=== PATIENT | male | born 1955 | race Asian ===

== ENCOUNTER 2016-09-27 16:01 | Inpatient (IN) | payer OTHER ==
[~2016-09-27] VITALS: Ht 165.1 cm; Wt 63.5 kg
[2016-09-27 16:54] LABS: BASOPHIL % 0.3 % (0-2); PLATELET COUNT 232 x10^3mcL (130-400); RED CELL DISTRIBUTION WIDTH 13.6 % (11.5-14.5)
[2016-09-27 17:03] LABS: CALCIUM 9.1 mg/dL (8.5-10.1); CARBON DIOXIDE 26.4 mmol/L (21-32); CHLORIDE SERUM 106 mmol/L (98-107); CREATININE SERUM 0.9 mg/dL (0.7-1.3); GFR1 > 60 mL/min; GLUCOSE SERUM 89 mg/dL (74-106); POTASSIUM SERUM 3.9 mmol/L (3.5-5.1); SODIUM SERUM 141 mmol/L (136-145)
[2016-09-27 17:08] LABS: ALKALINE PHOSPHATASE 44 U/L (46-116); ALT/SGPT 39 U/L (16-63); AST/SGOT 20 U/L (15-37); BILIRUBIN TOTAL 0.63 mg/dL (0.20-1.00)
[2016-09-27 17:11] LABS: microscopic required? NO
[2016-09-27 17:26] LABS: UA SPECIFIC GRAVITY 1.015 (1.005-1.035); urine erythrocyte NEGATIVE (NEGATIVE)
[2016-09-27 17:42] LABS: T4(THYROXINE) 7.6 ug/dL (4.7-13.3)
[2016-09-27 17:47] LABS: AMPHETAMINE QUAL UR NONE DETECTED (NEG <=1000)
[2016-09-27] MEDS ORDERED: ZOCOR40 MG PO (18:26)
[2016-09-27] MEDS ORDERED: ADULT LOW DOSE81 MG PO (18:27)
[2016-09-27 19:39] VITALS: BP 113/68
[2016-09-27 21:57] LABS: T3 TOTAL 1.26 ng/mL
[2016-09-27 21:58] LABS: CHOLESTEROL/HDL RATIO 4.4
[2016-09-27 22:04] LABS: FREE T4 1.48 ng/dL (0.76-1.46); FREE THYROXINE INDEX 2.6 ug/dL (1.4-4.5); T4(THYROXINE) 6.6 ug/dL (4.7-13.3)
[2016-09-28 05:55] VITALS: BP 106/63
[2016-09-28 06:06] LABS: BASOPHIL % 0.7 % (0-2); PLATELET COUNT 230 x10^3mcL (130-400); RED CELL DISTRIBUTION WIDTH 13.6 % (11.5-14.5)
[2016-09-28 06:33] LABS: CALCIUM 8.6 mg/dL (8.5-10.1); CARBON DIOXIDE 24.4 mmol/L (21-32); CHLORIDE SERUM 106 mmol/L (98-107); CREATININE SERUM 0.7 mg/dL (0.7-1.3); GFR1 > 60 mL/min; GLUCOSE SERUM 95 mg/dL (74-106); MAGNESIUM 2.2 mg/dL (1.8-2.4); PHOSPHOROUS 3.8 mg/dL (2.5-4.9); POTASSIUM SERUM 3.7 mmol/L (3.5-5.1); SODIUM SERUM 140 mmol/L (136-145)
[2016-09-28 09:56] VITALS: BP 97/49
[2016-09-28 14:18] VITALS: BP 91/46
[2016-09-28 18:00] VITALS: BP 95/51
[2016-09-28 20:54] VITALS: BP 105/53
[2016-09-29 05:59] VITALS: BP 106/63
[2016-09-29 09:17] VITALS: BP 103/61
[2016-09-29 15:47] VITALS: BP 103/61
[2016-09-29 16:13] VITALS: BP 100/58
[2016-09-29 17:59] LABS: CARBON DIOXIDE 25.3 mmol/L (21-32); CHLORIDE SERUM 106 mmol/L (98-107); CREATININE SERUM 0.9 mg/dL (0.7-1.3); GFR1 > 60 mL/min; GLUCOSE SERUM 110 mg/dL (74-106); POTASSIUM SERUM 4.1 mmol/L (3.5-5.1); SODIUM SERUM 142 mmol/L (136-145)
[2016-09-29 18:00] LABS: CALCIUM 8.8 mg/dL (8.5-10.1); MAGNESIUM 2.1 mg/dL (1.8-2.4); PHOSPHOROUS 4.2 mg/dL (2.5-4.9)
[2016-09-29 18:04] LABS: RED CELL DISTRIBUTION WIDTH 13.5 % (11.5-14.5)
[2016-09-29 18:05] LABS: PLATELET COUNT 228 x10^3mcL (130-400)
[2016-09-29 18:06] LABS: BASOPHIL % 0.6 % (0-2)
== END 2016-09-29 17:25 | disposition home or self-care (01) | DRG 243 ==
LOC: ED 16:01 → MU 18:21 → DU 18:21 → MU 09-29 05:38
PROVIDERS: Emergency Medicine; ADMIT Family Medicine
DX: K21.9 Gastro-esophageal reflux disease without esophagitis (principal); E78.5 Hyperlipidemia, unspecified; R73.03 Prediabetes; H91.93 Unspecified hearing loss, bilateral; Z68.23 Body mass index [BMI] 23.0-23.9, adult; Z79.82 Long term (current) use of aspirin; Z87.891 Personal history of nicotine dependence
CPT/HCPCS: 83880; 84439; A9500; G0480; J7030; Q0092

== ENCOUNTER 2016-12-22 13:24 | Inpatient (IN) | payer OTHER ==
[~2016-12-22] VITALS: Ht 165.1 cm; Wt 65.9 kg
[~2016-12-22 13:24] MED LIST: ADULT LOW DOSE81 MG PO; ZOCOR40 MG PO
[2016-12-22 14:22] LABS: BASOPHIL % 0.6 % (0-2); PLATELET COUNT 260 x10^3mcL (130-400)
[2016-12-22 14:31] LABS: CALCIUM 8.9 mg/dL (8.5-10.1); CARBON DIOXIDE 22.6 mmol/L (21-32); CHLORIDE SERUM 105 mmol/L (98-107); CREATININE SERUM 0.8 mg/dL (0.7-1.3); GFR1 > 60 mL/min; GLUCOSE SERUM 95 mg/dL (74-106); POTASSIUM SERUM 3.5 mmol/L (3.5-5.1); SODIUM SERUM 141 mmol/L (136-145)
[2016-12-22 14:37] LABS: ALBUMIN 4.1 g/dL (3.4-5.0); ALKALINE PHOSPHATASE 48 U/L (46-116); ALT/SGPT 53 U/L (16-63); AST/SGOT 40 U/L (15-37); BILIRUBIN TOTAL 0.47 mg/dL (0.20-1.00); LIPASE 157 IU/L (73-393); TOTAL PROTEIN, SERUM 8.1 g/dL (6.4-8.2)
[2016-12-22 15:14] LABS: UA SPECIFIC GRAVITY <=1.005 (1.005-1.035); microscopic required? YES; urine erythrocyte TRACE (NEGATIVE)
[2016-12-22] MEDS ORDERED: CLARITIN10 MG PO (16:08)
[2016-12-22 17:01] VITALS: BP 128/69
[2016-12-22 17:19] LABS: CHOLESTEROL/HDL RATIO 4.2; MAGNESIUM 2.2 mg/dL (1.8-2.4); PHOSPHOROUS 2.6 mg/dL (2.5-4.9)
[2016-12-22 17:25] LABS: FREE T4 1.63 ng/dL (0.76-1.46); FREE THYROXINE INDEX 3.3 ug/dL (1.4-4.5); T3 TOTAL 1.28 ng/mL; T4(THYROXINE) 8.8 ug/dL (4.7-13.3)
[2016-12-22 18:47] VITALS: BP 128/69
[2016-12-22 19:20] VITALS: BP 119/64
[2016-12-22 23:17] LABS: AMPHETAMINE QUAL UR NONE DETECTED (NEG <=1000)
[2016-12-23 08:54] LABS: CALCIUM 8.4 mg/dL (8.5-10.1); CARBON DIOXIDE 23.1 mmol/L (21-32); CHLORIDE SERUM 110 mmol/L (98-107); CREATININE SERUM 0.7 mg/dL (0.7-1.3); GFR1 > 60 mL/min; GLUCOSE SERUM 94 mg/dL (74-106); POTASSIUM SERUM 3.8 mmol/L (3.5-5.1); SODIUM SERUM 144 mmol/L (136-145)
[2016-12-23 08:56] LABS: BASOPHIL % 0.8 % (0-2); PLATELET COUNT 222 x10^3mcL (130-400); RED CELL DISTRIBUTION WIDTH 13.3 % (11.5-14.5)
[2016-12-23 11:08] VITALS: BP 108/65
[2016-12-23 14:27] VITALS: BP 107/66
[2016-12-23 18:24] VITALS: BP 119/69
[2016-12-23 19:30] VITALS: BP 110/50
[2016-12-24 05:37] VITALS: BP 104/56
[2016-12-24 06:15] LABS: BASOPHIL % 0.9 % (0-2); PLATELET COUNT 231 x10^3mcL (130-400); RED CELL DISTRIBUTION WIDTH 13.5 % (11.5-14.5)
[2016-12-24 06:24] LABS: CALCIUM 8.3 mg/dL (8.5-10.1); CARBON DIOXIDE 22.5 mmol/L (21-32); CHLORIDE SERUM 107 mmol/L (98-107); CREATININE SERUM 0.8 mg/dL (0.7-1.3); GFR1 > 60 mL/min; GLUCOSE SERUM 96 mg/dL (74-106); MAGNESIUM 2.1 mg/dL (1.8-2.4); POTASSIUM SERUM 3.4 mmol/L (3.5-5.1); SODIUM SERUM 137 mmol/L (136-145)
[2016-12-24 10:55] VITALS: BP 107/62
[2016-12-24 15:15] VITALS: BP 118/62
[2016-12-24] MEDS ORDERED: GOOD SENSE OMEP20 MG PO (16:42)
== END 2016-12-24 19:21 | disposition home or self-care (01) | DRG 243 ==
LOC: ED 13:24 → DU 15:30
PROVIDERS: Emergency Medicine; ADMIT Family Medicine
DX: K21.9 Gastro-esophageal reflux disease without esophagitis (principal); D68.69 Other thrombophilia; E11.65 Type 2 diabetes mellitus with hyperglycemia; R31.9 Hematuria, unspecified; G89.29 Other chronic pain; M54.9 Dorsalgia, unspecified; E78.5 Hyperlipidemia, unspecified; Z79.82 Long term (current) use of aspirin; Z68.24 Body mass index [BMI] 24.0-24.9, adult; Z87.891 Personal history of nicotine dependence; G90.9 Disorder of the autonomic nervous system, unspecified
CPT/HCPCS: 83880; 84439; J7030; Q0092; Q9967

== ENCOUNTER 2018-05-29 16:34 | Inpatient (IN) | payer OTHER ==
[~2018-05-29] VITALS: Ht 165.1 cm; Wt 66.4 kg
[~2018-05-29 16:34] MED LIST changes: +CLARITIN10 MG PO; +GOOD SENSE OMEP20 MG PO
[2018-05-29 16:53] VITALS: Ht 165.1 cm; Wt 66.4 kg
[2018-05-29 17:38] LABS: CALCIUM 8.9 mg/dL (8.5-10.1); CHLORIDE SERUM 104 mmol/L (98-107); CREATININE SERUM 1.1 mg/dL (0.7-1.3); GFR1 > 60 mL/min; GLUCOSE SERUM 98 mg/dL (74-106); SODIUM SERUM 140 mmol/L (136-145)
[2018-05-29 17:43] LABS: ALBUMIN 4.1 g/dL (3.4-5.0); ALKALINE PHOSPHATASE 46 U/L (46-116); ALT/SGPT 70 U/L (16-63); BILIRUBIN TOTAL 0.37 mg/dL (0.20-1.00); TOTAL PROTEIN, SERUM 8.1 g/dL (6.4-8.2)
[2018-05-29 17:52] LABS: BASOPHIL % 0.7 % (0-2); PLATELET COUNT 260 x10^3mcL (130-400); RED CELL DISTRIBUTION WIDTH 13.9 % (11.5-14.5)
[2018-05-29 17:54] LABS: POTASSIUM SERUM 3.8 mmol/L (3.5-5.1)
[2018-05-29 18:55] LABS: AST/SGOT 32 U/L (15-37)
[2018-05-29 19:33] LABS: microscopic required? NO
[2018-05-29] MEDS ORDERED: METOPROLOL SUCC25 M2 PO (20:04)
[2018-05-29] MEDS ORDERED: VITAMIN B121000 MCG PO (20:05)
[2018-05-29] MEDS ORDERED: FENOFIBRATE145 M1 PO (20:05)
[2018-05-29] MEDS ORDERED: ISONIAZID300 MG PO (20:05)
[2018-05-29] MEDS ORDERED: VITAMIN B-650 M1 PO (20:06)
[2018-05-29] MEDS ORDERED: OMEPRAZOLE40 M1 PO (20:06)
[2018-05-29 20:14] LABS: UA SPECIFIC GRAVITY 1.015 (1.005-1.035); urine erythrocyte NEGATIVE (NEGATIVE)
[2018-05-29 20:15] LABS: PHOSPHOROUS 4.3 mg/dL (2.5-4.9)
[2018-05-29 20:25] LABS: FREE T4 1.3 ng/dL (0.76-1.46); FREE THYROXINE INDEX 3.1 ug/dL (1.4-4.5); T4(THYROXINE) 8.5 ug/dL (4.7-13.3)
[2018-05-29 20:27] LABS: T3 TOTAL 1.14 ng/mL
[2018-05-29 20:49] LABS: AMPHETAMINE QUAL UR NONE DETECTED (See below)
[2018-05-29 21:21] VITALS: BP 137/70
[2018-05-30 00:06] VITALS: BP 137/70
[2018-05-30 05:43] VITALS: BP 132/60
[2018-05-30 06:28] LABS: BASOPHIL % 0.2 % (0-2); PLATELET COUNT 255 x10^3mcL (130-400); RED CELL DISTRIBUTION WIDTH 13.9 % (11.5-14.5)
[2018-05-30 06:38] LABS: CALCIUM 8.7 mg/dL (8.5-10.1); CARBON DIOXIDE 25.2 mmol/L (21-32); CHLORIDE SERUM 106 mmol/L (98-107); GFR1 > 60 mL/min; GLUCOSE SERUM 160 mg/dL (74-106); PHOSPHOROUS 2.7 mg/dL (2.5-4.9); POTASSIUM SERUM 3.9 mmol/L (3.5-5.1); SODIUM SERUM 141 mmol/L (136-145)
[2018-05-30 09:39] VITALS: BP 145/76
[2018-05-30 13:25] VITALS: BP 120/57
[2018-05-30 17:45] VITALS: BP 119/64
[2018-05-30 21:16] VITALS: BP 112/58
[2018-05-31 05:59] VITALS: BP 121/65
[2018-05-31 06:19] LABS: PLATELET COUNT 263 x10^3mcL (130-400); RED CELL DISTRIBUTION WIDTH 14.1 % (11.5-14.5)
[2018-05-31 06:30] LABS: BASOPHIL % 0 % (0-2)
[2018-05-31 06:34] LABS: CALCIUM 9.1 mg/dL (8.5-10.1); CARBON DIOXIDE 26.9 mmol/L (21-32); CHLORIDE SERUM 105 mmol/L (98-107); GFR1 > 60 mL/min; GLUCOSE SERUM 150 mg/dL (74-106); MAGNESIUM 2.4 mg/dL (1.8-2.4); PHOSPHOROUS 3.8 mg/dL (2.5-4.9); POTASSIUM SERUM 4.1 mmol/L (3.5-5.1); SODIUM SERUM 141 mmol/L (136-145)
[2018-05-31 09:00] VITALS: BP 118/56
[2018-05-31] MEDS ORDERED: LEVAQUIN750 MG PO (11:12)
[2018-05-31] MEDS ORDERED: PREDNISONE20 MG PO (11:17)
[2018-05-31 13:38] VITALS: BP 141/73
[2018-05-31] MEDS ORDERED: MOT800 PO (16:52)
[2018-05-31 17:20] VITALS: BP 131/68
[2018-05-31 17:54] VITALS: BP 131/68
== END 2018-05-31 18:32 | disposition home or self-care (01) | DRG 133 ==
LOC: ED 16:34 → DU 19:17
PROVIDERS: Emergency Medicine; Internal Medicine; ADMIT General Practice
DX: J96.00 Acute respiratory failure, unspecified whether with hypoxia or hypercapnia (principal); J18.9 Pneumonia, unspecified organism; J44.1 Chronic obstructive pulmonary disease with (acute) exacerbation; E11.65 Type 2 diabetes mellitus with hyperglycemia; R76.11 Nonspecific reaction to tuberculin skin test without active tuberculosis; E78.5 Hyperlipidemia, unspecified; I09.9 Rheumatic heart disease, unspecified; I10 Essential (primary) hypertension; R74.0 Nonspecific elevation of levels of transaminase and lactic acid dehydrogenase [LDH]; Z68.22 Body mass index [BMI] 22.0-22.9, adult; Z87.891 Personal history of nicotine dependence; Z79.84 Long term (current) use of oral hypoglycemic drugs
CPT/HCPCS: 82962; 83880; 84439; 87804; J0456; J0696; J1644; J1885; J1956; J2920; J2930; J7030; J7613; J7620; J7626; J7644; Q0092